=== PATIENT | male | born 1980 | race Caucasian/White ===

== ENCOUNTER 2020-10-31 20:37 | Emergency (ER) | payer OTHER ==
[~2020-10-31] VITALS: Ht 170.2 cm; Wt 64.0 kg
[~2020-10-31 20:37] MED LIST: HYDR-4001 MT
[2020-10-31] MEDS ORDERED: HYDROCODONE/ACETAMINOPHEN 5/325MG TABLET PO STA (22:21)
[2020-10-31] MEDS ORDERED: HYDR-4001 PO (22:42)
[2020-10-31 23:33] VITALS: BP 121/69
== END 2020-10-31 23:33 | disposition home or self-care (01) ==
LOC: ER 20:37
DX: K02.9 Dental caries, unspecified (principal); K08.531 Fractured dental restorative material with loss of material; Z88.6 Allergy status to analgesic agent
CPT/HCPCS: 99283

== ENCOUNTER 2020-11-25 17:14 | Emergency (ER) | payer OTHER ==
[~2020-11-25] VITALS: Ht 170.2 cm; Wt 63.0 kg
[~2020-11-25 17:14] MED LIST changes: +HYDR-4001 PO
[2020-11-25] MEDS ORDERED: HYDROCODONE/ACETAMINOPHEN 5/325MG TABLET PO ONE (18:30)
[2020-11-25] MEDS ORDERED: ONDANSETRON 4MG ODT PO ONE (18:30)
[2020-11-25] MEDS ORDERED: ONDANSETRON HCL 4MG/2ML INJ IV STA (20:36)
[2020-11-25] MEDS ORDERED: MORPHINE SULFATE 4 MG/ML CPJ (NOT FOR IM USE) IV STA (20:36)
[2020-11-25] MEDS ORDERED: SODIUM CHLORIDE 0.9% 1,000 ML IV ONE (20:45)
[2020-11-25 21:16] LABS: CHLORIDE 108 mEq/L (98-107)
[2020-11-25 21:18] LABS: BASOPHILS % 0.7 % (0.0-2.0); EOSINOPHILS % 0.1 % (0.0-5.0); HEMATOCRIT. 31.1 % (42.0-52.0); HEMOGLOBIN. 10.1 g/dL (14.0-18.0); MEAN CORPUSCULAR HEMOGLOBIN 24.5 pg (28.0-32.0); MEAN CORPUSCULAR VOLUME 75.7 fL (80.0-94.0); MEAN PLATELET VOLUME 7.9 fl (7.4-10.4); NEUTROPHILS % 73.2 % (40.0-76.0); PLATELET 379 x1000/uL (130-400); RED BLOOD CELL COUNT 4.11 mill/uL (4.7-6.1); RED CELL DISTRIBUTION WIDTH 18.4 % (11.6-14.6)
[2020-11-25 21:21] VITALS: BP 124/73
[2020-11-25 21:39] LABS: INR 1.2; PARTIAL THROMBOPLASTIN TIME 23.1 sec (23.4-31.0); PROTHROMBIN TIME 12.4 sec (9.6-11.0)
[2020-11-25] MEDS ORDERED: HYDR-4001 MT (22:19)
[2020-11-25] MEDS ORDERED: IOHEXOL-300 100 ML BOTTLE ONE (23:50)
== END 2020-11-25 22:41 | disposition home or self-care (01) ==
LOC: ER 17:14
DX: S39.81XA Other specified injuries of abdomen, initial encounter (principal); S49.82XA Other specified injuries of left shoulder and upper arm, initial encounter; S20.212A Contusion of left front wall of thorax, initial encounter; V29.88XA Motorcycle rider (driver) (passenger) injured in other specified transport accidents, initial encounter; Y93.89 Activity, other specified; Y92.410 Unspecified street and highway as the place of occurrence of the external cause; Z88.6 Allergy status to analgesic agent
CPT/HCPCS: 36415; 71101; 71260; 73030; 74177; 76705; 80053; 85025; 85610; 85730; 96361; 96374; 96375; 99285; J2270; J2405; J7030; Q0162; Q9967

== ENCOUNTER 2021-02-08 18:01 | Inpatient (IN) | payer MEDICARE, OTHER ==
[~2021-02-08] VITALS: Ht 170.2 cm; Wt 70.0 kg
[2021-02-08] MEDS ORDERED: HYDROCODONE/ACETAMINOPHEN 5/325MG TABLET PO STA (20:20)
[2021-02-08 22:13] LABS: BASOPHILS % 0.9 % (0.0-2.0); EOSINOPHILS % 1.8 % (0.0-5.0); HEMATOCRIT. 32.5 % (42.0-52.0); HEMOGLOBIN. 10.5 g/dL (14.0-18.0); LYMPHOCYTES % 35.1 % (20.0-50.0); MEAN CORPUSCULAR HEMOGLOBIN 24.5 pg (28.0-32.0); MEAN CORPUSCULAR VOLUME 76.2 fL (80.0-94.0); MEAN PLATELET VOLUME 7.7 fl (7.4-10.4); MONOCYTES % 6.8 % (2.0-8.0); NEUTROPHILS % 55.4 % (40.0-76.0); PLATELET 395 x1000/uL (130-400); RED BLOOD CELL COUNT 4.27 mill/uL (4.7-6.1); RED CELL DISTRIBUTION WIDTH 17.5 % (11.6-14.6)
[2021-02-08 22:18] LABS: CHLORIDE 108 mEq/L (98-107)
[2021-02-09] MEDS ORDERED: PANTOPRAZOLE SODIUM 40 MG/VIAL IV STA (00:16)
[2021-02-09] MEDS ORDERED: MORPHINE SULFATE 4 MG/ML CPJ (NOT FOR IM USE) IV ONE (01:45)
[2021-02-09] MEDS ORDERED: MORPHINE SULFATE 2 MG/ML CPJ (NOT FOR IM USE) IV PRN (04:15)
[2021-02-09] MEDS ORDERED: NALOXONE HCL 0.4 MG/ML 1ML VIAL IV PRN (04:45)
[2021-02-09] MEDS ORDERED: LORAZEPAM 2MG/ML CPJ IV PRN (06:00)
[2021-02-09 08:00] VITALS: BP 103/69
[2021-02-09] MEDS ORDERED: ONDANSETRON HCL 4MG/2ML INJ IV PRN (08:45)
[2021-02-09] MEDS ORDERED: TRAMADOL 50MG TABLET PO PRN (08:45)
[2021-02-09] MEDS ORDERED: ALPRAZOLAM 0.5 MG TABLET PO SCH (09:00)
[2021-02-09] MEDS ORDERED: HYDR-4001 PO (11:13)
[2021-02-09 12:00] VITALS: BP 106/62
[2021-02-09 12:11] VITALS: BP 103/69
== END 2021-02-09 12:34 | disposition home or self-care (01) | DRG 378 ==
LOC: ER 18:01 → MICUSO 02-09 01:38 → EDBEDREQ 02-09 02:11 → EDBEDREQTM 02-09 02:11 → ENRESERV 02-09 07:32 → 6EST 02-09 08:48
PROVIDERS: ADMIT Internal Medicine; ATTEND Internal Medicine
DX: K92.2 Gastrointestinal hemorrhage, unspecified (principal); D62 Acute posthemorrhagic anemia; F17.200 Nicotine dependence, unspecified, uncomplicated; E87.8 Other disorders of electrolyte and fluid balance, not elsewhere classified; D64.9 Anemia, unspecified; Z88.6 Allergy status to analgesic agent; Z88.8 Allergy status to other drugs, medicaments and biological substances; Z79.891 Long term (current) use of opiate analgesic; Z79.899 Other long term (current) drug therapy; Z87.820 Personal history of traumatic brain injury
CPT/HCPCS: 36415; 73030; 74176; 80053; 85025; 93005; 99285; C9113; J2060; J2270

== ENCOUNTER 2021-02-12 10:22 | Emergency (ER) | payer OTHER ==
[~2021-02-12] VITALS: Ht 170.2 cm; Wt 68.0 kg
[2021-02-12] MEDS ORDERED: MORPHINE SULFATE 4 MG/ML CPJ (NOT FOR IM USE) IV ONE ×2 (12:00→15:30)
[2021-02-12 12:51] LABS: BASOPHILS % 0.6 % (0.0-2.0); HEMATOCRIT. 34.9 % (42.0-52.0); HEMOGLOBIN. 10.8 g/dL (14.0-18.0); LYMPHOCYTES % 41.8 % (20.0-50.0); MEAN CORPUSCULAR HEMOGLOBIN 23.8 pg (28.0-32.0); MEAN CORPUSCULAR VOLUME 77.2 fL (80.0-94.0); MEAN PLATELET VOLUME 7.7 fl (7.4-10.4); MONOCYTES % 8.6 % (2.0-8.0); PLATELET 406 x1000/uL (130-400); RED BLOOD CELL COUNT 4.52 mill/uL (4.7-6.1); RED CELL DISTRIBUTION WIDTH 17.7 % (11.6-14.6)
[2021-02-12 12:56] LABS: CHLORIDE 107 mEq/L (98-107)
[2021-02-12 13:06] LABS: CLARITY URINE CLEAR (CLEAR); COLOR URINE DARK YELLOW (YELLOW); KETONES URINE NEGATIVE (NEGATIVE); LEUKOCYTE ESTERASE URINE TRACE (NEGATIVE); NITRITE URINE NEGATIVE (NEGATIVE); OCCULT BLOOD URINE 3+ (NEGATIVE); PROTEIN URINE 1+ (NEGATIVE); SPECIFIC GRAVITY URINE 1.035 (1.005-1.030); UROBILINOGEN URINE 0.2 E.U./dL (0.2-1.0)
[2021-02-12 13:11] LABS: HCG SCREEN NEGATIVE
[2021-02-12] MEDS ORDERED: IOHEXOL-300 100 ML BOTTLE ONE (14:14)
[2021-02-12] MEDS ORDERED: LACTATED RINGERS 1,000 ML IV STA (15:20)
[2021-02-12] MEDS ORDERED: FAMO20TA8 MT (16:36)
[2021-02-12] MEDS ORDERED: NAPR-681 MT (16:36)
[2021-02-12] MEDS ORDERED: PANTOPRAZOLE SODIUM 40 MG/VIAL IV SCH (19:30)
[2021-02-12] MEDS ORDERED: ONDANSETRON HCL 4MG/2ML INJ IV PRN (19:30)
[2021-02-12 19:45] VITALS: BP 115/75
[2021-02-12] MEDS ORDERED: SODIUM CHLORIDE 0.9% 1,000 ML IV SCH (20:00)
== END 2021-02-12 20:00 | disposition left against medical advice (07) ==
LOC: ER 10:22 → CANBEDREQ 23:53
DX: R10.9 Unspecified abdominal pain (principal); Z88.6 Allergy status to analgesic agent; Z88.8 Allergy status to other drugs, medicaments and biological substances
CPT/HCPCS: 36415; 71045; 74177; 80053; 81003; 83690; 84703; 85025; 93005; 96365; 96366; 96375; 96376; 99285; J2270; J7120; Q9967

== ENCOUNTER 2021-05-16 20:28 | Emergency (ER) | payer MEDICARE, OTHER ==
[~2021-05-16] VITALS: Ht 170.2 cm; Wt 68.0 kg
[~2021-05-16 20:28] MED LIST changes: +FAMO20TA8 MT; +NAPR-681 MT
[2021-05-16 20:55] VITALS: BP 131/87
[2021-05-16 21:23] LABS: BASOPHILS % 0.7 % (0.0-2.0); EOSINOPHILS % 3.6 % (0.0-5.0); HEMATOCRIT. 31.9 % (42.0-52.0); HEMOGLOBIN. 10.4 g/dL (14.0-18.0); LYMPHOCYTES % 37.6 % (20.0-50.0); MEAN PLATELET VOLUME 7.3 fl (7.4-10.4); MONOCYTES % 8.8 % (2.0-8.0); NEUTROPHILS % 49.3 % (40.0-76.0); PLATELET 346 x1000/uL (130-400); RED BLOOD CELL COUNT 3.99 mill/uL (4.7-6.1); RED CELL DISTRIBUTION WIDTH 17.9 % (11.6-14.6)
[2021-05-16 21:27] LABS: CHLORIDE 110 mEq/L (98-107)
[2021-05-16] MEDS ORDERED: KETOROLAC 30MG/ML VIAL IV ONE (21:45)
== END 2021-05-16 22:22 | disposition left against medical advice (07) ==
LOC: ER 20:28
DX: M54.50 Low back pain, unspecified (principal); R20.2 Paresthesia of skin; Z98.890 Other specified postprocedural states; Z79.899 Other long term (current) drug therapy
CPT/HCPCS: 36415; 72131; 72192; 80053; 85025; 99284; J1885

== ENCOUNTER 2021-05-25 14:27 | Emergency (ER) | payer MEDICARE, OTHER ==
[~2021-05-25] VITALS: Ht 170.2 cm; Wt 68.0 kg
[2021-05-25] MEDS ORDERED: ACETAMINOPHEN 325MG TABLET PO ONE (16:15)
[2021-05-25] MEDS ORDERED: ACET-2708 MT (17:43)
[2021-05-25 18:39] VITALS: BP 126/74
== END 2021-05-25 18:40 | disposition home or self-care (01) ==
LOC: ER 14:27
DX: S60.211A Contusion of right wrist, initial encounter (principal); Z88.6 Allergy status to analgesic agent; Z88.8 Allergy status to other drugs, medicaments and biological substances; Z98.890 Other specified postprocedural states; W01.0XXA Fall on same level from slipping, tripping and stumbling without subsequent striking against object, initial encounter; Y93.89 Activity, other specified; Y92.89 Other specified places as the place of occurrence of the external cause; Y99.8 Other external cause status
CPT/HCPCS: 73110; 73130; 99284; A4565

== ENCOUNTER 2021-12-07 23:49 | Emergency (ER) | payer MEDICARE, OTHER ==
[~2021-12-07] VITALS: Ht 170.2 cm; Wt 74.0 kg
[~2021-12-07 23:49] MED LIST changes: +ACET-2708 MT
[2021-12-08] MEDS ORDERED: DIAZEPAM 5 MG TABLET PO SCH (01:45)
[2021-12-08] MEDS ORDERED: LIDOCAINE 5% PATCH TOP SCH (01:45)
[2021-12-08] MEDS ORDERED: HYDROCODONE/ACETAMINOPHEN 5/325MG TABLET PO ONE (01:45)
[2021-12-08] MEDS ORDERED: MORPHINE SULFATE 10 MG/ML CPJ IM ONE (01:45)
[2021-12-08] MEDS ORDERED: METHOCARBAMOL 750MG TABLET PO SCH (01:45)
[2021-12-08] MEDS ORDERED: LIDO1ADH23 TP (03:51)
[2021-12-08] MEDS ORDERED: HYDR-4001 MT (03:51)
[2021-12-08] MEDS ORDERED: METH-653 MT (03:51)
[2021-12-08 04:36] VITALS: BP 122/76
== END 2021-12-08 04:39 | disposition home or self-care (01) ==
LOC: ER 23:49
DX: S30.0XXA Contusion of lower back and pelvis, initial encounter (principal); W10.9XXA Fall (on) (from) unspecified stairs and steps, initial encounter; Y93.89 Activity, other specified; Y92.9 Unspecified place or not applicable; M54.50 Low back pain, unspecified; Z88.6 Allergy status to analgesic agent; Z88.8 Allergy status to other drugs, medicaments and biological substances; Z98.890 Other specified postprocedural states
CPT/HCPCS: 72131; 96372; 99284; J2270

== ENCOUNTER 2022-07-06 01:46 | Emergency (ER) | payer MEDICARE, OTHER ==
[~2022-07-06] VITALS: Ht 170.2 cm; Wt 67.0 kg
[~2022-07-06 01:46] MED LIST changes: +LIDO1ADH23 TP; +METH-653 MT
[2022-07-06] MEDS ORDERED: OXYCODONE HCL/ACETAMINOPHEN 5/325MG TABLET PO ONE (06:00)
[2022-07-06 06:07] VITALS: BP 130/91
== END 2022-07-06 06:50 | disposition left against medical advice (07) ==
LOC: ER 01:46
DX: R51.9 Headache, unspecified (principal); Z88.6 Allergy status to analgesic agent
CPT/HCPCS: 99283

== ENCOUNTER 2022-12-07 00:25 | Emergency (ER) | payer MEDICARE, OTHER ==
[~2022-12-07] VITALS: Ht 170.2 cm; Wt 73.0 kg
[2022-12-07 00:41] VITALS: BP 113/63; PULSE 91; RESP 17; TEMP 98.5; O2SAT 98
== END 2022-12-07 02:36 | disposition left against medical advice (07) ==
LOC: ER 00:25
DX: Z53.21 Procedure and treatment not carried out due to patient leaving prior to being seen by health care provider (principal)
CPT/HCPCS: 99281